=== PATIENT | female | born 1960 | race Caucasian/White ===

== ENCOUNTER → 2017-11-27 | Outpatient (CLI) | payer BC ==
[~2017-11-27] MED LIST: CALCIUM 500 +1 EAC2 PO; CITALOPRAM HBR20 MG PO; PREMARIN0.45 MG PO; PRIMARIN; SINGULAIR10 MG PO; VENTOLIN HFA18 GM; VITAMIN D3 PO
--- NOTE | 2017-11-27 14:39 | Diagnostic Imaging Report ---
PROCEDURE:X-RAY ABDOMEN - KUB COMPARISON:[facility], DX, ABDOMEN-1VIEW (KUB), 03/10/2017, 12:06. [facility], CT, CT ABDOMEN/PELVIS WOW, 11/05/2016, 15:00. INDICATIONS:CALCULUS OF THE KIDNEY FINDINGS: Bowel: Normal bowel gas pattern. No dilated bowel loops. No pneumatosis. Calcifications: No calcifications of the renal shadows or along the expected course of the ureters. Multiple phleboliths in the right pelvis are stable. Surgical clips in the right upper quadrant are stable. Cardiomegaly: None. Lung bases: Clear. Osseous structures: Stable changes of the spine. No focal osseous lesions. CONCLUSION: No radiographic evidence of intrarenal calculus or calculus along the expected course of the ureters. Unremarkable bowel gas pattern. Dictated by: Viviana Chou M.D. on 11/27/2017 at 14:42 Electronically approved by: Viviana Chou M.D. on 11/27/2017 at 14:42
== END ==
LOC: RAD 13:49
PROVIDERS: ATTEND Urology
DX: N20.0 Calculus of kidney (principal)
CPT/HCPCS: 74018

== ENCOUNTER → 2018-04-21 | Outpatient (CLI) | payer BC ==
--- NOTE | 2018-04-21 14:25 | Diagnostic Imaging Report ---
EXAM: ABDOMEN-1VIEW (KUB) DATE: 04/21/2018 12:27 PM INDICATION: Kidney stones COMPARISON: None FINDINGS: Bowel Gas Pattern: Non-obstructive. Pneumoperitoneum: None. Suspicious Calcifications: Stool and bowel gas partially posterior kidneys. No distinct calcifications overlie the kidneys. Calcifications overlying the pelvis have the appearance of phleboliths. Other: Cholecystectomy clips. Clip to the right of L2 may represent migrated cholecystectomy clip. IMPRESSION: No acute findings. Signed by: Dr. Zachery Kim MD on 04/21/2018 2:22 PM
== END ==
LOC: RAD 12:19
PROVIDERS: ATTEND Urology
DX: N20.0 Calculus of kidney (principal)
CPT/HCPCS: 74018

== ENCOUNTER → 2018-09-14 | Outpatient (CLI) | payer BC ==
--- NOTE | 2018-09-14 14:07 | Diagnostic Imaging Report ---
Exam: Abdominal film Clinical History: Urinary calculi Comparison: 04/21/2018 DISCUSSION: No suspicious calcifications project over the renal shadows or expected ureteral courses. Multiple round pelvic calcifications likely phleboliths are unchanged compared to the prior examination. Bowel gas pattern is nonobstructive. Regional skeletal structures are intact. Right upper quadrant surgical clips likely reflect cholecystectomy. IMPRESSION: No plain film evidence of urolithiasis. Signed by: Dr. Adrian Walton M.D. on 09/14/2018 2:03 PM
== END ==
LOC: RAD 13:30
PROVIDERS: ATTEND Urology
DX: Z87.442 Personal history of urinary calculi (principal)
CPT/HCPCS: 74018

== ENCOUNTER → 2019-11-17 | Outpatient (CLI) | payer BC ==
--- NOTE | 2019-11-17 18:27 | Diagnostic Imaging Report ---
Exam: Abdominal film Clinical History: Check up for calculus of kidney Comparison: KUB 09/14/2018 and 04/15/2019, 04/21/2018 DISCUSSION: Frontal view of the abdomen shows a nonobstructive bowel gas pattern with moderate amount of retained stool.There are no dilated, air-filled loops of bowel. No radiopaque densities project over the renal shadows or expected course of ureters. Stable 3 mm radiopaque density projecting inferior to the left transverse process of L1, which is stable since 2018. No acute bone abnormality. Stable degenerative changes in the lumbosacral spine with mild leftward curvature IMPRESSION: 1. No nephro or ureterolithiasis The staff physician below has personally reviewed this exam on the date of dictation. Signed by: Dr. Jose Carmona M.D. on 11/17/2019 6:24 PM
== END ==
LOC: RAD 17:22
PROVIDERS: ATTEND Urology
DX: N20.0 Calculus of kidney (principal)
CPT/HCPCS: 74018

== ENCOUNTER → 2020-04-02 | Outpatient (CLI) | payer BC ==
[~2020-04-02] MED LIST changes: +ALLOPURINOL300 MG PO; +ATENOLOL50 MG PO; +ESTRADIOL1 MG PO; +FLOMAX0.4 MG PO; +HYDROCHLOROTH12.5 MG PO; +POTASSIUM PO
== END ==
LOC: RAD 11:55
PROVIDERS: ATTEND Urology
DX: N20.0 Calculus of kidney (principal)
CPT/HCPCS: 74018

== ENCOUNTER → 2020-05-21 | Day surgery (SDC) | payer BC ==
[2020-05-17 13:37] LABS: ANION GAP 12.7 mmol/L (8-16); CALCIUM 10.6 mg/dL (8.4-10.2); CREATININE, SERUM 1.33 mg/dL (0.57-1.11); POTASSIUM 3.7 mmol/L (3.5-5.1)
[~2020-05-21] MED LIST changes: +B&O 60MG R/S 60 MG SUPP PR ONE; +CEFTRIAXONE SOD 1 GM/NS 50 ML 50 ML IV ONE; +DEXAMETHASONE SOD PHOS INJ 4 MG/ML VIAL ONE; +FENTANYL CITRATE/PF 100MCG/2 ML INJ ONE; +IOPAMIDOL 300MG/ML 50ML INFUS..BTL IV ONE; +LIDOCAINE HCL 2% LOCAL INJ 5 ML SDV VIAL INJ ONE; +MIDAZOLAM HCL 2 MG/2 ML VIAL ONE; +ONDANSETRON HCL INJ 2MG/ML 2ML 2 MG/ML VIAL ONE; +PROPOFOL IV EMULSION 10 MG/ML 20 ML VIAL ONE; +SEVOFLURANE INHAL SOLN 250 ML PEN BTL ONE
--- NOTE | 2020-05-21 08:31 | Diagnostic Imaging Report ---
OR Fluoroscopy: IMPRESSION: Fluoroscopy service provided in the OR. Interpretation not requested. Signed by: Matheus Hudson MD on 05/21/2020 8:28 AM
--- NOTE | 2020-05-21 08:33 | Diagnostic Imaging Report ---
X-ray abdomen KUB History: Preop for cystoscopy Comparison: 04/02/2020 Findings: Kidneys are partially obscured by the bowel contents. No definite calculi in the kidney or along the course of the ureters. Incidental findings: Surgical arin in the right upper quadrant and right lower quadrant. Nonobstructive bowel gas pattern. Degenerative disc disease of the lumbar spine, especially pronounced at L2-L3 level. Iliac enthesopathy. Lung bases clear. Impression: No renal calculi seen. Signed by: Matheus Hudson MD on 05/21/2020 8:30 AM
[2020-05-21 08:50] VITALS: BP 131/71
--- NOTE | 2020-05-21 10:09 | Operative Report ---
DATE OF PROCEDURE: 05/21/2020 SURGEON: Sina Killian MD PREOPERATIVE DIAGNOSES: 1. Interstitial cystitis. 2. Microhematuria. 3. Urinary tract infections. POSTOPERATIVE DIAGNOSES: 1. Interstitial cystitis. 2. Microhematuria. 3. Urinary tract infections. 4. Grade 3 cystocele. 5. Grade 2 rectocele. 6. Atrophic (senile) vaginitis. 7. Urethral hypermobility. OPERATIONS PERFORMED: 1. Cystourethroscopy with bilateral ureteral catheterization and retrograde ureteropyelography (separate procedure performed for the hematuria and urinary tract infections). 2. Interpretation of retrograde ureteropyelography, no radiologist present. 3. Supervision of fluoroscopy, no radiologist present. 4. Cystourethroscopy with hydrodistention (separate procedure performed for the interstitial cystitis). 5. Pelvic examination under anesthesia. ANESTHESIA: General. COMPLICATIONS: None. CLINICAL SUMMARY: Fang Rey is a 60-year-old woman with the above preoperative diagnoses. She is brought for the above procedures. She is aware of the risks of bleeding, infection, injury to adjacent structures, need for additional procedures and elected to proceed. OPERATIVE PROCEDURE IN DETAIL: Informed consent was verified. Fang Rey was properly identified, taken to the operating room, placed on the cystoscopy table in supine position. Anesthesia was uneventfully begun. The patient was then carefully gently repositioned in the dorsal lithotomy position with all pressure points were well padded. Her genitalia were prepared and draped in usual sterile fashion. The cystoscope sheath with obturator in place was atraumatically inserted into the patient's urethra and the bladder was drained. Panendoscopy revealed no suspicious mucosal lesions. No tumors and no stones. No diverticula, but trabeculations were noted. Normally positioned and configured ureteral orifices were identified and there was an obvious cystocele. The ureteral catheter was used to cannulate each ureter and retrograde ureteropyelograms were performed. INTERPRETATION OF RETROGRADE URETEROPYELOGRAPHY: Contrast was instilled in a retrograde fashion bilaterally. There were no tumors. There were no stones. There were no diverticula. Unobstructed drainage was observed bilaterally fluoroscopically. Hydrodistention was then carried out to 80 cm of water height and held in place for exactly 2 minutes. This revealed a bladder capacity under anesthesia only 600 mL. Endoscopy following hydrodistention revealed erythema of the bladder wall and no suspicious lesions and no significant glomerulations. The patient's bladder was drained. Cystoscope was withdrawn. Pelvic examination revealed urethral hypermobility with a grade 3 cystocele, which is more significant than what was appreciated in the office and grade 2 rectocele, which is also more significant than what was appreciated in the office. There was atrophic (senile) vaginitis. No abnormal palpable pelvic masses could be appreciated and there were no suspicious mucosal lesions, although there was mucosal hypertrophy along the anterior vaginal wall. The patient was then uneventfully reversed from anesthesia and taken to the recovery room in stable condition. There were no complications to the procedure. The patient tolerated the procedure well. Estimated blood loss was minimal. Exclusive postop instructions were given. We will plan to follow the patient up. I would recommend the patient to proceed with cystocele repair with a graft pubovaginal sling with the patient's cystocele much more significant under anesthesia than it was upon examination in the office and this most likely contributes to her voiding. We will discuss the procedure more in detail when we evaluate the patient preoperatively. Sina MD Maria D [place]/MODL /[id number] cc: Vinod Alexis MD
== END | disposition home or self-care (01) ==
LOC: OR 05-17 11:38
PROVIDERS: ATTEND Urology
DX: N30.11 Interstitial cystitis (chronic) with hematuria (principal); R39.16 Straining to void; N32.81 Overactive bladder; N81.6 Rectocele; N20.0 Calculus of kidney; N81.89 Other female genital prolapse; Z87.442 Personal history of urinary calculi; R31.0 Gross hematuria; N18.9 Chronic kidney disease, unspecified; N39.41 Urge incontinence; R39.14 Feeling of incomplete bladder emptying; N36.41 Hypermobility of urethra; N95.2 Postmenopausal atrophic vaginitis; Z88.5 Allergy status to narcotic agent; Z88.8 Allergy status to other drugs, medicaments and biological substances; M10.9 Gout, unspecified; I73.9 Peripheral vascular disease, unspecified; I10 Essential (primary) hypertension; E78.00 Pure hypercholesterolemia, unspecified; N81.10 Cystocele, unspecified; Z01.812 Encounter for preprocedural laboratory examination; Z01.810 Encounter for preprocedural cardiovascular examination; Z20.828 Contact with and (suspected) exposure to other viral communicable diseases
CPT/HCPCS: 36415; 52260; 74018; 74420; 80048; 93005; C1758; J0696; J1100; J2001; J2250; J2405; J2704; J3010; Q9967; U0002

== ENCOUNTER 2020-07-24 05:27 | Inpatient (IN) | payer BC ==
[2020-07-19 14:45] LABS: BASOPHILS # (AUTO) 0.1 (0.0-0.1); BASOPHILS % 0.6 % (0.0-1.0); EOSINOPHILS # (AUTO) 0.1 (0.0-0.4); EOSINOPHILS % 0.6 % (0.0-6.0); HEMATOCRIT 45.3 % (34.2-44.1); HEMOGLOBIN 14.6 g/dL (12.0-16.0); LYMPHOCYTES # (AUTO) 2.8 (1.0-3.2); LYMPHOCYTES % 31.5 % (18.0-39.1); MEAN CORPUSCULAR HEMOGLOBIN 29.9 pg (28-32); MEAN CORPUSCULAR HGB CONC 32.2 g/dL (31-35); MEAN CORPUSCULAR VOLUME 92.6 fL (81-99); MONOCYTES # (AUTO) 0.6 (0.2-0.8); MONOCYTES % 6.4 % (4.4-11.3); NEUTROPHILS # (AUTO) 5.3 (2.1-6.9); NEUTROPHILS % 60.6 % (38.7-80.0); PLATELET COUNT 217 x10e3/uL (140-360); RED BLOOD COUNT 4.89 x10e6/uL (3.6-5.1); RED CELL DISTRIBUTION WIDTH 13.2 % (11.7-14.4)
[2020-07-19 15:00] LABS: ANION GAP 12.9 mmol/L (8-16); CREATININE, SERUM 1.2 mg/dL (0.57-1.11); POTASSIUM 3.9 mmol/L (3.5-5.1)
[~2020-07-24] VITALS: Ht 162.6 cm; Wt 72.1 kg
[~2020-07-24 05:27] MED LIST changes: -B&O 60MG R/S 60 MG SUPP PR ONE; -CEFTRIAXONE SOD 1 GM/NS 50 ML 50 ML IV ONE; -DEXAMETHASONE SOD PHOS INJ 4 MG/ML VIAL ONE; -FENTANYL CITRATE/PF 100MCG/2 ML INJ ONE; -IOPAMIDOL 300MG/ML 50ML INFUS..BTL IV ONE; -LIDOCAINE HCL 2% LOCAL INJ 5 ML SDV VIAL INJ ONE; -MIDAZOLAM HCL 2 MG/2 ML VIAL ONE; -ONDANSETRON HCL INJ 2MG/ML 2ML 2 MG/ML VIAL ONE; -PROPOFOL IV EMULSION 10 MG/ML 20 ML VIAL ONE; -SEVOFLURANE INHAL SOLN 250 ML PEN BTL ONE
[2020-07-24] MEDS ORDERED: PIPER-TAZ 3.375 GM 50 ML ONE (06:17)
[2020-07-24] MEDS ORDERED: GENTAMICIN 80MG/NS 100 ML 200 ML IV ONE (06:18)
[2020-07-24] MEDS ORDERED: BUPIVACAINE 0.25%/EPI 30ML SDV INJ ONE (06:49)
[2020-07-24] MEDS ORDERED: INDIGOTINDISULFONATE SODIUM 8 MG/ML AMP IJ ONE (06:49)
[2020-07-24] MEDS ORDERED: IOPAMIDOL 300MG/ML 50ML INFUS..BTL IV ONE (06:49)
[2020-07-24] MEDS ORDERED: GENTAMICIN SULFATE 40 MG/ML 2 ML VIAL ONE (06:49)
[2020-07-24] MEDS ORDERED: SILVER SULFADIAZINE 50GM CREAM ONE (06:53)
[2020-07-24] MEDS ORDERED: ONDANSETRON HCL INJ 2MG/ML 2ML 2 MG/ML VIAL IV PRN (09:15)
[2020-07-24] MEDS ORDERED: PHENAZOPYRIDINE HCL 100 MG TAB PO PRN (09:15)
[2020-07-24] MEDS ORDERED: DIPHENHYDRAMINE HCL 25 MG CAP PO PRN (09:15)
[2020-07-24] MEDS ORDERED: FENTANYL CITRATE/PF 100MCG/2 ML INJ ONE (10:19)
[2020-07-24] MEDS ORDERED: LIDOCAINE HCL 2% LOCAL INJ 5 ML SDV VIAL INJ ONE (12:54)
[2020-07-24] MEDS ORDERED: ONDANSETRON HCL INJ 2MG/ML 2ML 2 MG/ML VIAL ONE (12:54)
[2020-07-24] MEDS ORDERED: SEVOFLURANE INHAL SOLN 250 ML PEN BTL ONE (12:54)
[2020-07-24] MEDS ORDERED: DEXAMETHASONE SOD PHOS INJ 4 MG/ML VIAL ONE (12:54)
[2020-07-24] MEDS ORDERED: PROPOFOL IV EMULSION 10 MG/ML 20 ML VIAL ONE (12:54)
[2020-07-24] MEDS ORDERED: GLYCOPYRROLATE INJ 0.2 MG/ML VIAL ONE (12:54)
[2020-07-24 14:15] VITALS: BP 115/69
[2020-07-24] MEDS: DOCUSATE SODIUM 100 MG CAP PO SCH (15:03)
[2020-07-24] MEDS: PIPER-TAZ 3.375 GM 50 ML IV SCH ×2 (15:10→21:18)
[2020-07-24] MEDS: D5.45%NS/KCL 20MEQ 1,000 ML IV SCH ×2 (15:10→15:59)
[2020-07-24] MEDS: TRAMADOL HCL 50 MG TAB PO PRN ×2 (15:11→21:54)
[2020-07-24] MEDS ORDERED: ALBUTEROL SULFATE HFA 8GM INHALATION AEROSOL INH PRN (16:00)
[2020-07-24 16:11] VITALS: BP 102/74
[2020-07-24] MEDS: POTASSIUM PO SCH (17:00)
[2020-07-24 20:00] VITALS: BP 105/70
[2020-07-24 20:30] VITALS: BP 105/70
[2020-07-24] MEDS ORDERED: VITAMIN D3 PO SCH (21:00)
[2020-07-24] MEDS ORDERED: CALCIUM CARBONATE PO SCH (21:00)
[2020-07-24] MEDS ORDERED: NON-FORMULARY MEDICATION (Hydrochlorothiazide 12.5 MG) PO SCH (21:00)
[2020-07-24] MEDS: HYDROCHLOROTHIAZIDE 25 MG TAB PO SCH (21:09)
[2020-07-24] MEDS: MONTELUKAST SODIUM 10 MG TAB PO SCH (21:10)
[2020-07-24] MEDS: OYST-CAL-D 500MG TABLET PO SCH (21:10)
[2020-07-24] MEDS: ATENOLOL 50 MG TAB PO SCH (21:11)
[2020-07-25] VITALS (7 sets, daily range): BP systolic 99–112; BP diastolic 56–68
[2020-07-25] MEDS: D5.45%NS/KCL 20MEQ 1,000 ML IV SCH ×3 (00:56→19:00)
[2020-07-25] MEDS: TRAMADOL HCL 50 MG TAB PO PRN ×2 (04:50→16:05)
[2020-07-25 05:00] LABS: BASOPHILS % 0.1 % (0.0-1.0); HEMATOCRIT 38.4 % (34.2-44.1); HEMOGLOBIN 12.4 g/dL (12.0-16.0); LYMPHOCYTES % 12.4 % (18.0-39.1); MEAN CORPUSCULAR HEMOGLOBIN 29.5 pg (28-32); MEAN CORPUSCULAR HGB CONC 32.3 g/dL (31-35); MEAN CORPUSCULAR VOLUME 91.2 fL (81-99); MONOCYTES # (AUTO) 0.9 (0.2-0.8); MONOCYTES % 5.4 % (4.4-11.3); NEUTROPHILS # (AUTO) 13.1 (2.1-6.9); NEUTROPHILS % 81.7 % (38.7-80.0); PLATELET COUNT 167 x10e3/uL (140-360); RED BLOOD COUNT 4.21 x10e6/uL (3.6-5.1); RED CELL DISTRIBUTION WIDTH 13.2 % (11.7-14.4)
[2020-07-25 05:14] LABS: ANION GAP 14.1 mmol/L (8-16); CALCIUM 9.1 mg/dL (8.4-10.2); CREATININE, SERUM 1.08 mg/dL (0.57-1.11); POTASSIUM 4.1 mmol/L (3.5-5.1)
[2020-07-25] MEDS: PIPER-TAZ 3.375 GM 50 ML IV SCH ×3 (06:32→23:00)
[2020-07-25] MEDS: OYST-CAL-D 500MG TABLET PO SCH ×3 (08:19→20:37)
[2020-07-25] MEDS: DOCUSATE SODIUM 100 MG CAP PO SCH ×2 (08:19→16:16)
[2020-07-25] MEDS: ALLOPURINOL 300 MG TAB PO SCH (08:19)
[2020-07-25] MEDS: TAMSULOSIN HCL 0.4 MG CAP PO SCH (08:19)
[2020-07-25] MEDS: POTASSIUM PO SCH ×2 (08:19→15:58)
[2020-07-25] MEDS: ATENOLOL 50 MG TAB PO SCH (20:37)
[2020-07-25] MEDS: HYDROCHLOROTHIAZIDE 25 MG TAB PO SCH (20:37)
[2020-07-25] MEDS: MONTELUKAST SODIUM 10 MG TAB PO SCH (20:37)
[2020-07-26 00:30] VITALS: BP 121/74
[2020-07-26] MEDS: TRAMADOL HCL 50 MG TAB PO PRN ×2 (00:38→08:55)
[2020-07-26] MEDS: D5.45%NS/KCL 20MEQ 1,000 ML IV SCH ×2 (02:26→11:31)
[2020-07-26 05:09] VITALS: BP 110/67
[2020-07-26 05:32] LABS: BASOPHILS % 0.4 % (0.0-1.0); EOSINOPHILS # (AUTO) 0.1 (0.0-0.4); EOSINOPHILS % 0.4 % (0.0-6.0); HEMOGLOBIN 11.8 g/dL (12.0-16.0); LYMPHOCYTES # (AUTO) 3.4 (1.0-3.2); LYMPHOCYTES % 29.8 % (18.0-39.1); MEAN CORPUSCULAR HEMOGLOBIN 30.1 pg (28-32); MEAN CORPUSCULAR HGB CONC 31.9 g/dL (31-35); MEAN CORPUSCULAR VOLUME 94.4 fL (81-99); MONOCYTES # (AUTO) 0.8 (0.2-0.8); MONOCYTES % 6.9 % (4.4-11.3); NEUTROPHILS % 62.1 % (38.7-80.0); PLATELET COUNT 151 x10e3/uL (140-360); RED BLOOD COUNT 3.92 x10e6/uL (3.6-5.1); RED CELL DISTRIBUTION WIDTH 13.3 % (11.7-14.4)
[2020-07-26 05:56] LABS: ANION GAP 11.9 mmol/L (8-16); CREATININE, SERUM 1.13 mg/dL (0.57-1.11); POTASSIUM 3.9 mmol/L (3.5-5.1)
[2020-07-26] MEDS: PIPER-TAZ 3.375 GM 50 ML IV SCH ×2 (06:00→14:26)
[2020-07-26 08:24] VITALS: BP 108/79
[2020-07-26] MEDS: TAMSULOSIN HCL 0.4 MG CAP PO SCH (08:33)
[2020-07-26] MEDS: POTASSIUM PO SCH (08:33)
[2020-07-26] MEDS: ALLOPURINOL 300 MG TAB PO SCH (08:33)
[2020-07-26] MEDS: DOCUSATE SODIUM 100 MG CAP PO SCH (08:33)
[2020-07-26] MEDS: OYST-CAL-D 500MG TABLET PO SCH (08:33)
[2020-07-26 08:52] VITALS: BP 108/79
[2020-07-26 13:28] VITALS: BP 119/60
[2020-07-26] MEDS ORDERED: ULTRAM50 MG PO (15:47)
[2020-07-26] MEDS ORDERED: LEVOFLOXACIN250 MG PO (15:48)
[2020-07-26 16:48] VITALS: BP 110/66
== END 2020-07-26 16:33 | disposition home or self-care (01) | DRG 748 ==
LOC: OR 05:27 → PACU V 09:07 → MED/SURG 14:05
PROVIDERS: ADMIT Internal Medicine; ATTEND Internal Medicine
PROC: BT141ZZ Fluoroscopy of Kidneys, Ureters and Bladder using Low Osmolar Contrast (ICD-10-PCS; 2020-07-24)
PROC: 0JUC0KZ Supplement of Pelvic Region Subcutaneous Tissue and Fascia with Nonautologous Tissue Substitute, Open Approach (ICD-10-PCS; principal; 2020-07-24 07:00)
PROC: 0TSD0ZZ Reposition Urethra, Open Approach (ICD-10-PCS; 2020-07-24 07:00)
DX: N81.89 Other female genital prolapse (principal); N39.0 Urinary tract infection, site not specified; N39.3 Stress incontinence (female) (male); N20.0 Calculus of kidney; R31.29 Other microscopic hematuria; N32.81 Overactive bladder; N81.6 Rectocele; R39.16 Straining to void; I12.9 Hypertensive chronic kidney disease with stage 1 through stage 4 chronic kidney disease, or unspecified chronic kidney disease; N18.30 Chronic kidney disease, stage 3 unspecified; M10.9 Gout, unspecified; J45.909 Unspecified asthma, uncomplicated; Z82.49 Family history of ischemic heart disease and other diseases of the circulatory system; Z88.5 Allergy status to narcotic agent; Z88.8 Allergy status to other drugs, medicaments and biological substances; Z87.440 Personal history of urinary (tract) infections; Z87.442 Personal history of urinary calculi
CPT/HCPCS: 36415; 74420; 80048; 85025; 99251; C1752; C1758; J1100; J1580; J2001; J2405; J2543; J3010; U0002

== ENCOUNTER → 2021-03-18 | Outpatient (CLI) | payer BC ==
[~2021-03-18] MED LIST changes: +LEVOFLOXACIN250 MG PO; +ULTRAM50 MG PO
== END ==
LOC: RAD 14:44
PROVIDERS: ATTEND Urology
DX: N20.0 Calculus of kidney (principal)
CPT/HCPCS: 74018

== ENCOUNTER 2021-06-19 08:07 | Emergency (ER) | payer BC ==
[~2021-06-19] VITALS: Ht 162.6 cm; Wt 72.1 kg
[2021-06-19] MEDS ORDERED: CASIRIVIMAB/IMDEVIMAB 10 ML in SODIUM CHLORIDE 0.9% 100 ML IV ONE (08:30)
== END 2021-06-19 09:38 | disposition home or self-care (01) ==
LOC: ER 08:13
DX: U07.1 COVID-19 (principal); I10 Essential (primary) hypertension; J45.909 Unspecified asthma, uncomplicated; Z88.6 Allergy status to analgesic agent; Z88.8 Allergy status to other drugs, medicaments and biological substances; Z79.899 Other long term (current) drug therapy; Z87.440 Personal history of urinary (tract) infections; Z86.2 Personal history of diseases of the blood and blood-forming organs and certain disorders involving the immune mechanism
CPT/HCPCS: 99283; J7050

== ENCOUNTER → 2021-09-24 | Outpatient (CLI) | payer BC | LOC: RAD 11:30 | PROVIDERS: ATTEND Internal Medicine | DX: N20.0 Calculus of kidney (principal) | CPT/HCPCS: 74018 ==

== ENCOUNTER → 2022-03-27 | Outpatient (CLI) | payer BC | LOC: RAD 15:41 | PROVIDERS: ATTEND Urology | DX: N20.0 Calculus of kidney (principal) | CPT/HCPCS: 74018 ==

== ENCOUNTER → 2022-11-28 | Outpatient (CLI) | payer BC | LOC: RAD 15:48 | PROVIDERS: ATTEND Urology | DX: N02.0 Recurrent and persistent hematuria with minor glomerular abnormality (principal) | CPT/HCPCS: 74018 ==

== ENCOUNTER → 2024-08-04 | Outpatient (REF) | payer BC | LOC: RAD 13:56 | PROVIDERS: ATTEND Urology | DX: N20.0 Calculus of kidney (principal) | CPT/HCPCS: 74018 ==